=== PATIENT | female | born 1940 | race African-American/Black ===

== ENCOUNTER 2019-08-01 09:24 | Inpatient (IN) | payer MEDICARE, OTHER ==
[~2019-08-01] VITALS: Ht 177.8 cm; Wt 85.9 kg
[2019-08-01 10:31] LABS: Basophils # (auto) 0 uL; Basophils % (auto) 0.2 % (0.0-2.0); Eosinophils # (auto) 0 uL; Eosinophils % (auto) 0.2 % (0.0-7.0); Hematocrit 35.9 % (36.0-46.0); Hemoglobin 11.1 g/dL (12.2-16.2); Lymphocytes # (auto) 0.5 uL; Lymphocytes % (auto) 7.5 % (10.0-50.0); Mean Corpuscular Hemoglobin 25.3 pg (28.0-32.0); Mean Corpuscular Hgb Conc. 30.9 g/dL (32.0-36.0); Mean Corpuscular Volume 82.1 fL (80.0-100.0); Monocytes # (auto) 0.6 uL; Monocytes % (auto) 8.2 % (0.0-12.0); Neutrophils # (auto) 5.8 uL; Neutrophils % (auto) 83.9 % (37.0-80.0); Nucleated Red Blood Cells % 0.1 %; Platelet Count (auto) 108 10^3/uL (140-450); Red Blood Cells 4.37 10^6/uL (4.0-5.20); Red Cell Distribution Width 19.1 % (11.8-14.3); White Blood Cell 6.9 10^3/uL (4.4-10.8)
[2019-08-01 10:43] LABS: Albumin 3.3 g/dL (3.4-5.0); Anion Gap 6 (5-15); Blood Urea Nitrogen 21 mg/dL (7-18); Calcium 7.9 mg/dL (8.5-10.1); Carbon Dioxide 28 mmol/L (21-32); Chloride 98 mmol/L (98-107); Glucose 85 mg/dL (74-106); Magnesium 2.1 mg/dL (1.6-2.6); Potassium 3.5 mmol/L (3.5-5.1); Sodium 132 mmol/L (136-145)
[2019-08-01 10:49] LABS: Alanine Aminotransferase 40 U/L (13-56); Alkaline Phosphatase 55 U/L (45-117); Aspartate Aminotransferase 67 U/L (15-37); BUN/Creatinine Ratio 7.6; Bilirubin, Total 0.5 mg/dL (0.2-1.0); GFR African American 21 mL/min; GFR Non-African American 17 mL/min; Total Protein 7.3 g/dL (6.4-8.2)
[2019-08-01] MEDS ORDERED: MORPHINE SULF INJ 2 MG/ML SYRINGE 1ML IV ONE (11:00)
[2019-08-01] MEDS ORDERED: PROMETHAZINE HCL 25 MG/ML 1ML IV ONE (11:00)
[2019-08-01 14:12] LABS: Urine Amorphous Crystal FEW /hpf (None Seen); Urine Bacteria FEW /hpf (None Seen); Urine Blood 2+ /uL (Negative); Urine Specific Gravity 1.007 (1.001-1.035); Urine WBC 7 /hpf (0 - 5)
[2019-08-01] MEDS ORDERED: NITROGLYCERIN 0.4 MG SL TAB SL PRN (15:15)
[2019-08-01] MEDS ORDERED: HYDROcodone-ACET 5/325MG TAB PO PRN (15:15)
[2019-08-01] MEDS ORDERED: ONDANSETRON HCL 4 MG/2 ML VIAL IV PRN (15:15)
[2019-08-01] MEDS ORDERED: LABETALOL HCL 5 MG/ML 4ML SYRINGE IV PRN (15:15)
[2019-08-01] MEDS ORDERED: MORPHINE SULF INJ 2 MG/ML SYRINGE 1ML IV PRN ×2 (15:15)
[2019-08-01 17:23] VITALS: BP 137/59
[2019-08-01] MEDS ORDERED: DEXTROSE (50%) 50ML SYRG IV PRN (21:00)
[2019-08-01] MEDS: InsuLIN REG 1unit/0.01ml Soln (100units/ml) SC SCH (21:37)
[2019-08-01] MEDS: ACCU-CHEK COMFORT CURVE STRIP VI SCH (21:37)
[2019-08-01 22:00] VITALS: BP 169/67
[2019-08-01 23:30] VITALS: BP 132/99
[2019-08-02 05:14] VITALS: BP 140/68
[2019-08-02 05:52] LABS: Basophils # (auto) 0 uL; Eosinophils # (auto) 0 uL; Eosinophils % (auto) 0.1 % (0.0-7.0); Monocytes # (auto) 0.9 uL; Neutrophils # (auto) 6.2 uL
[2019-08-02 05:54] LABS: Basophils % (auto) 0.1 % (0.0-2.0); Hematocrit 33.8 % (36.0-46.0); Hemoglobin 10.8 g/dL (12.2-16.2); Lymphocytes # (auto) 0.5 uL; Lymphocytes % (auto) 6.9 % (10.0-50.0); Mean Corpuscular Hemoglobin 25.8 pg (28.0-32.0); Mean Corpuscular Hgb Conc. 31.8 g/dL (32.0-36.0); Mean Corpuscular Volume 81.3 fL (80.0-100.0); Monocytes % (auto) 11.5 % (0.0-12.0); Neutrophils % (auto) 81.4 % (37.0-80.0); Platelet Count (auto) 114 10^3/uL (140-450); Red Blood Cells 4.17 10^6/uL (4.0-5.20); Red Cell Distribution Width 18.7 % (11.8-14.3); White Blood Cell 7.6 10^3/uL (4.4-10.8)
[2019-08-02 06:19] LABS: Phosphorus 3.6 mg/dL (2.5-4.90); Uric Acid 4.1 mg/dL (2.6-6.0)
[2019-08-02] MEDS: ACCU-CHEK COMFORT CURVE STRIP VI SCH ×4 (06:19→22:10)
[2019-08-02] MEDS: InsuLIN REG 1unit/0.01ml Soln (100units/ml) SC SCH ×4 (06:19→22:17)
[2019-08-02 06:20] LABS: Calcium 8.2 mg/dL (8.5-10.1)
[2019-08-02] MEDS ORDERED: SODIUM CHL 0.9% 1000 ML BAG XX ONE (07:00)
[2019-08-02 08:53] VITALS: BP 112/73
[2019-08-02] MEDS: FAMOTIDINE 20 MG TAB PO SCH (09:51)
[2019-08-02] MEDS: ACETAMINOPHEN 500 MG TAB PO PRN ×2 (10:02→18:06)
[2019-08-02 13:00] VITALS: BP 128/73
[2019-08-02 16:44] VITALS: BP 148/90
[2019-08-02 22:00] VITALS: BP 141/63
[2019-08-02] MEDS ORDERED: LISINOPRIL 5 MG TAB PO ONE (22:00)
[2019-08-03 05:00] VITALS: BP 135/69
[2019-08-03] MEDS: ACETAMINOPHEN 500 MG TAB PO PRN ×3 (06:11→22:30)
[2019-08-03] MEDS: ACCU-CHEK COMFORT CURVE STRIP VI SCH ×4 (06:14→22:00)
[2019-08-03] MEDS: InsuLIN REG 1unit/0.01ml Soln (100units/ml) SC SCH ×4 (06:14→22:00)
[2019-08-03 09:00] VITALS: BP 113/50
[2019-08-03 13:00] VITALS: BP 131/53
[2019-08-03 16:53] VITALS: BP 136/78
[2019-08-03 20:00] VITALS: BP 143/84
[2019-08-03 22:00] VITALS: BP 143/84
[2019-08-03] MEDS: LISINOPRIL 5 MG TAB PO SCH (22:24)
[2019-08-04] MEDS: ACETAMINOPHEN 500 MG TAB PO PRN ×3 (02:05→10:15)
[2019-08-04 05:00] VITALS: BP 91/52
[2019-08-04 09:00] VITALS: BP 131/50
[2019-08-04] MEDS: FAMOTIDINE 20 MG TAB PO SCH (09:50)
[2019-08-04] MEDS: ACCU-CHEK COMFORT CURVE STRIP VI SCH ×3 (11:14→22:00)
[2019-08-04] MEDS: InsuLIN REG 1unit/0.01ml Soln (100units/ml) SC SCH ×3 (11:30→22:00)
[2019-08-04 13:00] VITALS: BP 121/63
[2019-08-04 17:00] VITALS: BP 135/80
[2019-08-04 20:00] VITALS: BP 186/84
[2019-08-04] MEDS: LISINOPRIL 5 MG TAB PO SCH (21:48)
[2019-08-04 22:00] VITALS: BP 186/66
[2019-08-05 05:00] VITALS: BP 164/71
[2019-08-05] MEDS: InsuLIN REG 1unit/0.01ml Soln (100units/ml) SC SCH ×4 (06:39→21:11)
[2019-08-05] MEDS: ACCU-CHEK COMFORT CURVE STRIP VI SCH ×4 (06:40→21:11)
[2019-08-05 09:00] VITALS: BP 117/69
[2019-08-05 13:00] VITALS: BP 135/67
[2019-08-05] MEDS: ACETAMINOPHEN 500 MG TAB PO PRN (15:11)
[2019-08-05 17:00] VITALS: BP 136/53
[2019-08-05 22:00] VITALS: BP 145/82
[2019-08-05] MEDS: LISINOPRIL 5 MG TAB PO SCH (22:04)
[2019-08-06] VITALS (7 sets, daily range): BP systolic 117–165; BP diastolic 49–92
[2019-08-06] MEDS: InsuLIN REG 1unit/0.01ml Soln (100units/ml) SC SCH ×4 (06:25→22:00)
[2019-08-06] MEDS: ACCU-CHEK COMFORT CURVE STRIP VI SCH ×3 (06:25→17:08)
[2019-08-06] MEDS: FAMOTIDINE 20 MG TAB PO SCH (11:01)
[2019-08-06] MEDS: ACETAMINOPHEN 500 MG TAB PO PRN (12:06)
[2019-08-06] MEDS: LISINOPRIL 5 MG TAB PO SCH (22:00)
[2019-08-07] VITALS (7 sets, daily range): BP systolic 113–144; BP diastolic 63–95
[2019-08-07] MEDS: ACCU-CHEK COMFORT CURVE STRIP VI SCH ×4 (01:08→22:00)
[2019-08-07] MEDS: InsuLIN REG 1unit/0.01ml Soln (100units/ml) SC SCH ×4 (05:54→22:00)
[2019-08-07] MEDS: LISINOPRIL 5 MG TAB PO SCH (23:41)
[2019-08-08 05:00] VITALS: BP 140/77
[2019-08-08 05:15] VITALS: BP 144/88
[2019-08-08 06:14] LABS: Basophils # (auto) 0 uL; Eosinophils # (auto) 0 uL; Eosinophils % (auto) 0.6 % (0.0-7.0); Lymphocytes # (auto) 0.5 uL; Monocytes # (auto) 0.9 uL
[2019-08-08 06:17] LABS: Basophils % (auto) 0.5 % (0.0-2.0); Hematocrit 30.4 % (36.0-46.0); Lymphocytes % (auto) 6.6 % (10.0-50.0); Mean Corpuscular Hemoglobin 25.7 pg (28.0-32.0); Mean Corpuscular Hgb Conc. 32.9 g/dL (32.0-36.0); Mean Corpuscular Volume 78.3 fL (80.0-100.0); Monocytes % (auto) 12.4 % (0.0-12.0); Neutrophils # (auto) 5.9 uL; Neutrophils % (auto) 79.9 % (37.0-80.0); Platelet Count (auto) 131 10^3/uL (140-450); Red Blood Cells 3.89 10^6/uL (4.0-5.20); Red Cell Distribution Width 18.8 % (11.8-14.3); White Blood Cell 7.4 10^3/uL (4.4-10.8)
[2019-08-08 06:36] LABS: Potassium 4.4 mmol/L (3.5-5.1)
[2019-08-08 06:37] LABS: BUN/Creatinine Ratio 11.1
[2019-08-08] MEDS: InsuLIN REG 1unit/0.01ml Soln (100units/ml) SC SCH ×3 (06:44→17:00)
[2019-08-08] MEDS: ACCU-CHEK COMFORT CURVE STRIP VI SCH ×3 (06:45→17:00)
[2019-08-08] MEDS ORDERED: SODIUM CHL 0.9% 1000 ML BAG XX ONE (07:45)
[2019-08-08 09:00] VITALS: BP 165/63
[2019-08-08] MEDS: FAMOTIDINE 20 MG TAB PO SCH (11:04)
[2019-08-08 12:25] VITALS: BP 150/65
[2019-08-08 13:00] VITALS: BP 185/65
[2019-08-08 14:00] VITALS: BP 156/72
== END 2019-08-08 17:00 | disposition home or self-care (01) | DRG 564 ==
LOC: EDUNIT# 09:24 → EDBD 09:24 → ER 09:24 → TELE-WESTW 09:25
PROVIDERS: ADMIT Nurse Practitioner Acute Care; ATTEND Family Medicine
PROC: 5A1D70Z Performance of Urinary Filtration, Intermittent, Less than 6 Hours Per Day (ICD-10-PCS; principal; 2019-08-02)
PROC: 5A1D70Z Performance of Urinary Filtration, Intermittent, Less than 6 Hours Per Day (ICD-10-PCS; 2019-08-05)
PROC: 5A1D70Z Performance of Urinary Filtration, Intermittent, Less than 6 Hours Per Day (ICD-10-PCS; 2019-08-08)
DX: S22.22XA Fracture of body of sternum, initial encounter for closed fracture (principal); N18.6 End stage renal disease; E44.1 Mild protein-calorie malnutrition; E87.1 Hypo-osmolality and hyponatremia; I12.0 Hypertensive chronic kidney disease with stage 5 chronic kidney disease or end stage renal disease; S29.8XXA Other specified injuries of thorax, initial encounter; E11.21 Type 2 diabetes mellitus with diabetic nephropathy; E11.40 Type 2 diabetes mellitus with diabetic neuropathy, unspecified; R07.89 Other chest pain; D63.1 Anemia in chronic kidney disease; F03.90 Unspecified dementia, unspecified severity, without behavioral disturbance, psychotic disturbance, mood disturbance, and anxiety; Z99.2 Dependence on renal dialysis; V89.2XXA Person injured in unspecified motor-vehicle accident, traffic, initial encounter; Z79.899 Other long term (current) drug therapy; Z88.0 Allergy status to penicillin; Z68.27 Body mass index [BMI] 27.0-27.9, adult; Y93.89 Activity, other specified; Y92.89 Other specified places as the place of occurrence of the external cause; Y99.8 Other external cause status
CPT/HCPCS: 36415; 71045; 71046; 71250; 74176; 80048; 80053; 81001; 82306; 82962; 83735; 83880; 83970; 84100; 84484; 84550; 85025; 87081; 90935; 93005; 93306; 97116; 97530; G0378; J1815; J3490

== ENCOUNTER 2019-08-21 10:12 | Inpatient (IN) | payer OTHER ==
[~2019-08-21] VITALS: Ht 165.1 cm; Wt 68.2 kg
[2019-08-21 11:20] LABS: Eosinophils # (auto) 0 10 ^3/uL (0-0.8); Hemoglobin 8.4 g/dL (12.2-16.2); Monocytes # (auto) 0.5 10 ^3/uL (0-1.3); Neutrophils % (auto) 90.7 % (37.0-80.0)
[2019-08-21 11:22] LABS: Basophils # (auto) 0.1 10 ^3/uL (0-0.2); Basophils % (auto) 0.6 % (0.0-2.0); Hematocrit 26.4 % (36.0-46.0); Lymphocytes # (auto) 0.5 10 ^3/uL (0.4-5.4); Lymphocytes % (auto) 4.5 % (10.0-50.0); Mean Corpuscular Hemoglobin 24.6 pg (28.0-32.0); Mean Corpuscular Hgb Conc. 31.9 g/dL (32.0-36.0); Mean Corpuscular Volume 76.9 fL (80.0-100.0); Monocytes % (auto) 4.2 % (0.0-12.0); Platelet Count (auto) 151 10^3/uL (140-450); Red Blood Cells 3.43 10^6/uL (4.0-5.20); Red Cell Distribution Width 19.7 % (11.8-14.3); White Blood Cell 12.1 10^3/uL (4.4-10.8)
[2019-08-21 11:40] LABS: Albumin 2.8 g/dL (3.4-5.0); Calcium 8.5 mg/dL (8.5-10.1)
[2019-08-21 11:43] LABS: BUN/Creatinine Ratio 16.6; Bilirubin, Total 0.5 mg/dL (0.2-1.0)
[2019-08-21 14:26] LABS: Urine Bacteria FEW /hpf (None Seen); Urine Blood Negative /uL (Negative); Urine Specific Gravity 1.015 (1.001-1.035); Urine WBC 9 /hpf (0 - 5)
[2019-08-21] MEDS ORDERED: ONDANSETRON HCL 4 MG/2 ML VIAL IV PRN (18:15)
[2019-08-21] MEDS ORDERED: ACETAMINOPHEN 500 MG TAB PO PRN (18:15)
[2019-08-21] MEDS ORDERED: MORPHINE SULF INJ 2 MG/ML SYRINGE 1ML IV PRN ×2 (18:15)
[2019-08-21] MEDS ORDERED: HYDROcodone-ACET 5/325MG TAB PO PRN (18:15)
[2019-08-21] MEDS ORDERED: DEXTROSE (50%) 50ML SYRG IV PRN (18:15)
[2019-08-21] MEDS ORDERED: NITROGLYCERIN 0.4 MG SL TAB SL PRN (18:15)
[2019-08-21] MEDS: cefTRIAXone 1GM/50ML D5W 50 ML IV SCH (18:46)
--- NOTE | 2019-08-21 20:25 | NUR ---
MED REC Patient unable to recall medications she takes at home. Patient does not have anyone to bring in a list of medications at this time.
[2019-08-21 20:29] VITALS: BP 141/53
--- NOTE | 2019-08-21 21:00 | NUR ---
MS admit from ER SHAKA POTTER admitted to tele/MS. No SBAR received. Patient oriented to Moses ferrell RN, central unit, 220 room, B bed, and unit policies regarding patient care and visiting hours. Patient weighed by bedscale and encouraged to call if they need something. All questions and concerns addressed, patient verbalized understanding.
[2019-08-21] MEDS: InsuLIN REG 1unit/0.01ml Soln (100units/ml) SC SCH (21:40)
[2019-08-21] MEDS: ACCU-CHEK COMFORT CURVE STRIP VI SCH (21:42)
[2019-08-21] MEDS ORDERED: INSULIN LANTUS (GLARGINE) 1 /0.01ml (100units/ml) SC SCH (22:00)
[2019-08-21 22:44] VITALS: BP 141/53
[2019-08-21] MEDS: hydrALAZINE HCL 25 MG TAB PO SCH (23:41)
--- NOTE | 2019-08-22 00:03 | NUR ---
Confirmed with Lab, they received mrsa swab.
[2019-08-22 05:37] VITALS: BP 147/62
[2019-08-22] MEDS: hydrALAZINE HCL 25 MG TAB PO SCH ×4 (05:57→23:53)
[2019-08-22] MEDS: InsuLIN REG 1unit/0.01ml Soln (100units/ml) SC SCH ×4 (06:06→22:18)
[2019-08-22] MEDS: ACCU-CHEK COMFORT CURVE STRIP VI SCH ×4 (06:12→22:20)
[2019-08-22 06:13] LABS: BUN/Creatinine Ratio 16.6; Calcium 8.1 mg/dL (8.5-10.1); Phosphorus 4.2 mg/dL (2.5-4.90)
[2019-08-22 06:22] LABS: % Iron Saturation 11.8 % (15-50); Basophils # (auto) 0 10 ^3/uL (0-0.2); Basophils % (auto) 0.3 % (0.0-2.0); Eosinophils # (auto) 0 10 ^3/uL (0-0.8); Eosinophils % (auto) 0.2 % (0.0-7.0); Hematocrit 26.7 % (36.0-46.0); Hemoglobin 8.7 g/dL (12.2-16.2); Lymphocytes # (auto) 0.8 10 ^3/uL (0.4-5.4); Lymphocytes % (auto) 6.8 % (10.0-50.0); Mean Corpuscular Hemoglobin 24.8 pg (28.0-32.0); Mean Corpuscular Hgb Conc. 32.5 g/dL (32.0-36.0); Mean Corpuscular Volume 76.2 fL (80.0-100.0); Monocytes # (auto) 0.9 10 ^3/uL (0-1.3); Monocytes % (auto) 8.2 % (0.0-12.0); Neutrophils # (auto) 9.5 10 ^3/uL (1.6-8.6); Neutrophils % (auto) 84.5 % (37.0-80.0); Platelet Count (auto) 174 10^3/uL (140-450); Red Blood Cells 3.51 10^6/uL (4.0-5.20); Red Cell Distribution Width 19.8 % (11.8-14.3); White Blood Cell 11.2 10^3/uL (4.4-10.8)
--- NOTE | 2019-08-22 06:38 | NUR ---
Paged hospitalist to notify patient accucheck reading is low. Readings are 37 / 36 repeat/ provided orange juice/ 53. Awaiting call back.
--- NOTE | 2019-08-22 06:55 | NUR ---
Spoke to hospitalist and notified hospitalist of patient accucheck reading is low. Readings are 37 / 36 repeat/ provided orange juice/ 53. New order given by Hospitalist Julio Cesar of mild sliding scale q4 hours and discontinue lantus. read back and confirmed with Juilo Cesar. Will continue to monitor patient.
[2019-08-22] MEDS ORDERED: SODIUM CHL 0.9% 1000 ML BAG XX ONE (07:00)
--- NOTE | 2019-08-22 07:07 | NUR ---
accucheck recheck is 102
--- NOTE | 2019-08-22 07:08 | NUR ---
patient states "i only take 4 units of lantus night time".
--- NOTE | 2019-08-22 07:41 | NUR ---
provided report to day mckenna Henley. Notified Kale of low accucheck readings. patient is resting in bed with no signs or symptoms of distress.
[2019-08-22 09:00] VITALS: BP 131/64
[2019-08-22] MEDS: cefTRIAXone 1GM/50ML D5W 50 ML IV SCH (09:07)
[2019-08-22] MEDS: FERROUS SULFATE 325 MG TAB PO SCH ×2 (09:08→17:27)
[2019-08-22] MEDS: PANTOPRAZOLE 40 MG TAB PO SCH (09:08)
[2019-08-22] MEDS: CALCIUM ACETATE 667 MG CAP PO SCH ×3 (09:08→17:26)
--- NOTE | 2019-08-22 09:08 | NUR ---
MORNING MEDICATIONS ADMINISTERED, TOLERATED WELL. DENIES ANY DISCOMFORT AT MOMENT. BED LOCKED AND IN LOWEST POSITION, CALL LIGHT WITHIN REACH. WILL CONTINUE TO MONITOR.
--- NOTE | 2019-08-22 09:45 | NUR ---
PT TAKEN TO [facility] DEPT. FOR DIALYSIS SITE MARKING.
[2019-08-22] MEDS ORDERED: ACCU-CHEK COMFORT CURVE STRIP VI SCH (10:00)
[2019-08-22] MEDS ORDERED: InsuLIN REG 1unit/0.01ml Soln (100units/ml) SC SCH (10:00)
[2019-08-22] MEDS ORDERED: predniSONE 5 MG TAB PO SCH (10:00)
--- NOTE | 2019-08-22 10:30 | NUR ---
PT BACK INTO UNIT. NO S/S OF DISTRESS. COMFORTABLE ENVIRONMENT PROVIDED. HD AV SHUNT SITE MARKED FOR DIALYSIS ACCESS.
--- NOTE | 2019-08-22 10:54 | NUR ---
DR. BENAVIDES IN TO SEE PT. PT IN AGREEMENT WITH PLAN OF CARE.
[2019-08-22] MEDS ORDERED: DEXTROSE (50%) 50ML SYRG IV PRN (11:00)
--- NOTE | 2019-08-22 11:08 | NUR ---
CHEMICAL LABORATORY TESTER IN ROOM TO SEE PT.
--- NOTE | 2019-08-22 11:12 | NUR ---
WOUND CARE NOTE: Wound care in to see patient per wound care request regarding multiple skin integrity issue that are noted present on admission. Bedside nurse took photograph of patient's wounds/skin issue upon admission for reference. Patient is 79 years old female admitted for Fistula Hematoma. Patient with history of htn, DM, ESRD. Patient is resting in bed in Rm. 220B. Patient is awake, alert and oriented. Patient is in no stated pain at this time. She's able to assist in turning and repositioning. Her Ramiro score is 19. Skin/wound assessment done with the assistance of patient's nurse, KATIUSKA Henley. Patient have just back to her room from [employer]. She has some markings on her L upper thigh which KATIUSKA Henley reported marked for dialysis fistula. Patient's L upper anterior thigh has hematoma with large ecchymosis down to her L hip/thigh area. Patient's BLE noted with edema and dry peeling skin. Her Lt heel has 0.7x0.5cm non-blanchable redness with linear/tear, lana wound is bright red, no drainage or odor noted. Patient reported that her left heel is "sore to touch". Patient reported that due to leg swelling she's in bed and her heels touches the bed. L heel wound consistent with Stage 2 pressure injury. Cleansed patient's L heel wound with NS,patted dry with gauze, applied Thera honey gel and covered with Opti foam gentle dressing. Patient's lower sacral/buttock has dark brown pigmented skin, could be pigmentation from old pressure injury or superficial discoloration. Skin is intact, blanchable, denies feeling sore upon palpation. Lana care given,applied Z Guard cream to lower buttocks. Covered upper sacrum with preventative Opti foam sacral dressing. Patient tolerated well, repositioned for comfort,redistributed pressure points with pillows. Patient's education provided regarding skin/wound care, verbalized understanding. RECOMMENDATION: Nursing to continue with BID/PRN cleaning and application of Z Guard cream to sacral,buttocks; EOD/PRN dressing change to L heel pressure injury per MD order, Dietary consult for wound, frequent turning and re positioning schedule as condition permits, redistribute pressure points with pillows, elevate edematous BLE on pillows, continue monitoring by wound care while patient is hospitalized. Addendum: 08/22/19 at 1501 by Lizet Farmer RN Amended: Links added.
[2019-08-22 13:00] VITALS: BP 153/54
[2019-08-22 17:00] VITALS: BP 156/57
--- NOTE | 2019-08-22 19:00 | NUR ---
Opening Shift Note Assumed care of patient, awake and alert. No S/S of distress/SOB or pain. Instructed on POC and to call for assist PRN, will continue to monitor for changes Q1hr and PRN. Pt in lowest possible position with bed rails up x2 and call light within reach.
[2019-08-22 20:00] VITALS: BP 152/69
--- NOTE | 2019-08-22 20:30 | NUR ---
Carina applied to sacrum area.
[2019-08-22] MEDS ORDERED: EPOETIN ALFA 10,000 UNIT/1 ML VIAL SC ONE (21:00)
[2019-08-22 22:00] VITALS: BP 152/69
[2019-08-23 02:00] VITALS: BP 130/29
[2019-08-23 05:41] VITALS: BP 135/50
[2019-08-23] MEDS: hydrALAZINE HCL 25 MG TAB PO SCH ×2 (06:13→12:18)
[2019-08-23] MEDS: InsuLIN REG 1unit/0.01ml Soln (100units/ml) SC SCH ×2 (06:17→12:17)
[2019-08-23] MEDS: ACCU-CHEK COMFORT CURVE STRIP VI SCH ×2 (06:17→12:17)
[2019-08-23 06:43] LABS: Potassium 3.9 mmol/L (3.5-5.1)
[2019-08-23 06:48] LABS: BUN/Creatinine Ratio 14.6
--- NOTE | 2019-08-23 07:00 | NUR ---
Closing note pt in the lowest possible position with call light within reach, will endorse to day shift RN.
--- NOTE | 2019-08-23 07:20 | NUR ---
PT FOUND STANDING UP, PT STATES SHE IS GETTING READY TO GO HOME, PT REORIENTED TO PLAN OF CARE. ASSISTED PT, BACK IN BED, PT COOPERATIVE OF CARE. PT VERBALIZED UNDERSTANDING ABOUT AWAITING FOR DR. BED LOCKED AND IN LOWEST POSITION, CALL LIGHT WITHIN REACH, BED ALARM ON. WILL CONTINUE TO MONITOR.
[2019-08-23 07:37] LABS: Basophils # (auto) 0 10 ^3/uL (0-0.2); Basophils % (auto) 0.3 % (0.0-2.0); Eosinophils # (auto) 0 10 ^3/uL (0-0.8); Eosinophils % (auto) 0.2 % (0.0-7.0); Hematocrit 25.6 % (36.0-46.0); Hemoglobin 8.3 g/dL (12.2-16.2); Lymphocytes # (auto) 0.6 10 ^3/uL (0.4-5.4); Lymphocytes % (auto) 7.2 % (10.0-50.0); Mean Corpuscular Hemoglobin 24.9 pg (28.0-32.0); Mean Corpuscular Hgb Conc. 32.6 g/dL (32.0-36.0); Mean Corpuscular Volume 76.4 fL (80.0-100.0); Monocytes % (auto) 11.6 % (0.0-12.0); Neutrophils # (auto) 6.9 10 ^3/uL (1.6-8.6); Neutrophils % (auto) 80.7 % (37.0-80.0); Nucleated Red Blood Cells % 0.2 %; Platelet Count (auto) 176 10^3/uL (140-450); Red Blood Cells 3.34 10^6/uL (4.0-5.20); Red Cell Distribution Width 19.9 % (11.8-14.3); White Blood Cell 8.6 10^3/uL (4.4-10.8)
[2019-08-23] MEDS: cefTRIAXone 1GM/50ML D5W 50 ML IV SCH (08:49)
[2019-08-23] MEDS: PANTOPRAZOLE 40 MG TAB PO SCH (08:49)
[2019-08-23] MEDS: FERROUS SULFATE 325 MG TAB PO SCH (08:49)
[2019-08-23] MEDS: CALCIUM ACETATE 667 MG CAP PO SCH ×2 (08:49→12:18)
[2019-08-23 09:00] VITALS: BP 142/71
--- NOTE | 2019-08-23 12:15 | NUR ---
Nutrition Assessment Notes Please refer to link for full assessment notes. Est energy needs: 6183-1717 kcals (30-35 kcal/kgBW) d/t pt on HD Est protein needs: 75-82 gms/day (1.1-1.2 gm/kgBW) d/t pt on HD Will continue to monitor and reassess prn. Addendum: 08/23/19 at [address]añ[address] RD Amended: Links added.
[2019-08-23 13:05] VITALS: BP 154/59
--- NOTE | 2019-08-23 14:13 | NUR ---
FOLLOW UP APPOINTMENT FOLLOWED UP BY YONI RN MESSAGE LEFT AT DR. RODRIGUEZ'S OFFICE. CONTACT INFORMATION PROVIDED TO PT.
--- NOTE | 2019-08-23 16:00 | NUR ---
DISCHARGE INSTRUCTIONS PROVIDED TO PT. PT VERBALIZED UNDERSTANDING FOR CONTINUATION OF HOME MEDICATIONS AND FOLLOW UP APPOINTMENT WITH DR. RODRIGUEZ, APPOINTMENT SET BY PANDA. EDUCATIONAL MATERIAL PROVIDED, ALL QUESTIONS AND CONCERNS ADDRESSED. IV CATHETER DC'D CATHETER INTACT, NO PHLEBITIS. PT PROVIDED WITH [facility] FOR TRANSPORT HOME. PT SAFELY ESCORTED OUT OF UNIT VIA WHEELCHAIR.
[2019-08-23 17:00] VITALS: BP 155/73
== END 2019-08-23 16:00 | disposition home or self-care (01) | DRG 314 ==
LOC: ER 10:12 → EDBD 10:12 → OVERFLOW 10:13 → CENTRAL 20:00
PROVIDERS: ADMIT Nurse Practitioner Acute Care; ATTEND Internal Medicine
PROC: 5A1D70Z Performance of Urinary Filtration, Intermittent, Less than 6 Hours Per Day (ICD-10-PCS; principal; 2019-08-22)
DX: T82.41XA Breakdown (mechanical) of vascular dialysis catheter, initial encounter (principal); N18.6 End stage renal disease; N30.00 Acute cystitis without hematuria; E87.1 Hypo-osmolality and hyponatremia; Z94.0 Kidney transplant status; Z99.2 Dependence on renal dialysis; D63.1 Anemia in chronic kidney disease; I10 Essential (primary) hypertension; D72.829 Elevated white blood cell count, unspecified; Z88.0 Allergy status to penicillin; E10.8 Type 1 diabetes mellitus with unspecified complications; Y83.8 Other surgical procedures as the cause of abnormal reaction of the patient, or of later complication, without mention of misadventure at the time of the procedure; Y92.89 Other specified places as the place of occurrence of the external cause
CPT/HCPCS: 36415; 80048; 80053; 81001; 82728; 82962; 83036; 83540; 83550; 84100; 85025; 87081; 87086; 90935; 93925; 93926; 96365; 96372; G0378; J0696; J0885; J1815